=== PATIENT | male | born 1990 | race African-American/Black ===

== ENCOUNTER 2018-10-28 16:50 | Emergency (ER) | payer SELFPAY ==
[~2018-10-28] VITALS: Ht 160 cm; Wt 53.1 kg
[2018-10-28 16:56] VITALS: Ht 160 cm; Wt 53.1 kg
[2018-10-28 17:15] VITALS: BP 122/81
== END 2018-10-28 17:15 | disposition left against medical advice (07) ==
LOC: ED 16:50
DX: Z53.21 Procedure and treatment not carried out due to patient leaving prior to being seen by health care provider (principal)

== ENCOUNTER 2018-11-04 07:15 | Inpatient (IN) | payer OTHER ==
[~2018-11-04] VITALS: Ht 162.6 cm; Wt 50.0 kg
[2018-11-04 08:51] LABS: BASOPHIL % 0.2 % (0-2); PLATELET COUNT 377 x10^3mcL (130-400)
[2018-11-04 09:02] LABS: CALCIUM 9.6 mg/dL (8.5-10.1); CARBON DIOXIDE 10.1 mmol/L (21-32); CREATININE SERUM 1.5 mg/dL (0.7-1.3); POTASSIUM SERUM 4.8 mmol/L (3.5-5.1)
[2018-11-04 09:06] LABS: BILIRUBIN TOTAL 1.2 mg/dL (0.20-1.00)
[2018-11-04 09:10] LABS: TOTAL PROTEIN, SERUM 10.6 g/dL (6.4-8.2)
[2018-11-04 14:40] VITALS: BP 167/96
[2018-11-04 16:47] VITALS: BP 175/99
[2018-11-04 18:38] VITALS: BP 162/102
[2018-11-04 21:41] VITALS: BP 173/95
[2018-11-05 06:31] LABS: BASOPHIL % 0.1 % (0-2); PLATELET COUNT 266 x10^3mcL (130-400)
[2018-11-05 06:48] LABS: CALCIUM 8.2 mg/dL (8.5-10.1); CARBON DIOXIDE 16.9 mmol/L (21-32); CHLORIDE SERUM 100 mmol/L (98-107); CREATININE SERUM 1.1 mg/dL (0.7-1.3); GFR1 > 60 mL/min; GLUCOSE SERUM 179 mg/dL (74-106); PHOSPHOROUS 1.4 mg/dL (2.5-4.9); POTASSIUM SERUM 3.5 mmol/L (3.5-5.1); SODIUM SERUM 133 mmol/L (136-145)
[2018-11-05 06:50] VITALS: BP 169/108
[2018-11-05 06:54] LABS: RED CELL DISTRIBUTION WIDTH 17.5 % (11.5-14.5)
[2018-11-05 08:47] VITALS: BP 188/112
[2018-11-05 13:16] VITALS: BP 169/112
[2018-11-05 16:23] VITALS: BP 137/85
[2018-11-05 20:14] VITALS: BP 138/78
[2018-11-06 05:18] VITALS: BP 139/86
[2018-11-06 05:34] LABS: PLATELET COUNT 218 x10^3mcL (130-400)
[2018-11-06 05:35] LABS: BASOPHIL % 0 % (0-2); RED CELL DISTRIBUTION WIDTH 17.3 % (11.5-14.5)
[2018-11-06 06:15] LABS: CALCIUM 8.5 mg/dL (8.5-10.1); CARBON DIOXIDE 20.3 mmol/L (21-32); CHLORIDE SERUM 101 mmol/L (98-107); CREATININE SERUM 0.8 mg/dL (0.7-1.3); GFR1 > 60 mL/min; GLUCOSE SERUM 118 mg/dL (74-106); MAGNESIUM 1.8 mg/dL (1.8-2.4); SODIUM SERUM 132 mmol/L (136-145)
[2018-11-06 07:38] VITALS: BP 128/75
[2018-11-06 13:26] VITALS: BP 127/77
[2018-11-06 16:19] VITALS: BP 137/95
[2018-11-06 20:32] VITALS: BP 138/94
[2018-11-07] VITALS (7 sets, daily range): BP systolic 142–180; BP diastolic 86–120
[2018-11-07 06:14] LABS: BASOPHIL % 0.4 % (0-2); PLATELET COUNT 206 x10^3mcL (130-400)
[2018-11-07 06:47] LABS: CALCIUM 8.5 mg/dL (8.5-10.1); CARBON DIOXIDE 22.3 mmol/L (21-32); CHLORIDE SERUM 102 mmol/L (98-107); CREATININE SERUM 0.9 mg/dL (0.7-1.3); GFR1 > 60 mL/min; GLUCOSE SERUM 116 mg/dL (74-106); SODIUM SERUM 137 mmol/L (136-145)
[2018-11-07 06:49] LABS: RED CELL DISTRIBUTION WIDTH 17.5 % (11.5-14.5)
[2018-11-07 06:54] LABS: POTASSIUM SERUM 2.8 mmol/L (3.5-5.1)
[2018-11-07 07:38] LABS: LIPASE 2422 IU/L (73-393)
[2018-11-08] VITALS (7 sets, daily range): BP systolic 150–177; BP diastolic 98–121
[2018-11-08 09:14] LABS: CALCIUM 8.7 mg/dL (8.5-10.1); CHLORIDE SERUM 97 mmol/L (98-107); CREATININE SERUM 0.6 mg/dL (0.7-1.3); GFR1 > 60 mL/min; GLUCOSE SERUM 139 mg/dL (74-106); SODIUM SERUM 135 mmol/L (136-145)
[2018-11-08 09:42] LABS: POTASSIUM SERUM 2.6 mmol/L (3.5-5.1)
[2018-11-09 05:27] VITALS: BP 152/73
[2018-11-09 08:59] LABS: BASOPHIL % 0.6 % (0-2); PLATELET COUNT 339 x10^3mcL (130-400)
[2018-11-09 09:03] LABS: RED CELL DISTRIBUTION WIDTH 17.4 % (11.5-14.5)
[2018-11-09 09:47] LABS: CALCIUM 9.6 mg/dL (8.5-10.1); CARBON DIOXIDE 26.5 mmol/L (21-32); CHLORIDE SERUM 97 mmol/L (98-107); CREATININE SERUM 0.8 mg/dL (0.7-1.3); GFR1 > 60 mL/min; GLUCOSE SERUM 127 mg/dL (74-106); MAGNESIUM 1.6 mg/dL (1.8-2.4); POTASSIUM SERUM 3.2 mmol/L (3.5-5.1); SODIUM SERUM 136 mmol/L (136-145)
[2018-11-09 10:05] VITALS: BP 163/109
[2018-11-09 12:46] VITALS: BP 155/119
[2018-11-09 17:32] VITALS: BP 159/121
[2018-11-09 21:09] VITALS: BP 128/89
[2018-11-10 05:59] VITALS: BP 142/96; BP 152/108
[2018-11-10 06:04] LABS: BASOPHIL % 0.4 % (0-2)
[2018-11-10 06:22] LABS: CALCIUM 11.3 mg/dL (8.5-10.1); CARBON DIOXIDE 27.5 mmol/L (21-32); CHLORIDE SERUM 100 mmol/L (98-107); CREATININE SERUM 0.9 mg/dL (0.7-1.3); GFR1 > 60 mL/min; GLUCOSE SERUM 104 mg/dL (74-106); LIPASE 682 IU/L (73-393); POTASSIUM SERUM 4.7 mmol/L (3.5-5.1); SODIUM SERUM 137 mmol/L (136-145)
[2018-11-10 07:26] LABS: PLATELET COUNT 422 x10^3mcL (130-400); RED CELL DISTRIBUTION WIDTH 17.2 % (11.5-14.5)
[2018-11-10 10:01] VITALS: BP 129/89
[2018-11-10 12:00] VITALS: BP 129/89
== END 2018-11-10 12:40 | disposition home or self-care (01) | DRG 282 ==
LOC: ED 07:15 → DU 10:52 → MU 10:52 → DU 14:54
PROVIDERS: Emergency Medicine; Internal Medicine; ADMIT Internal Medicine
DX: K85.90 Acute pancreatitis without necrosis or infection, unspecified (principal); E87.2 Acidosis; F10.239 Alcohol dependence with withdrawal, unspecified; J45.909 Unspecified asthma, uncomplicated; Y90.9 Presence of alcohol in blood, level not specified; K92.2 Gastrointestinal hemorrhage, unspecified; Z88.0 Allergy status to penicillin; I10 Essential (primary) hypertension
CPT/HCPCS: 36600; C9113; G0378; J1170; J1885; J1940; J2060; J2270; J2405; J3480; J3490; J7030; J7042; J7120; Q0092; Q9967

== ENCOUNTER 2019-05-09 06:04 | Inpatient (IN) | payer OTHER ==
[~2019-05-09] VITALS: Ht 162.6 cm; Wt 49.0 kg
[2019-05-09 06:10] VITALS: Ht 162.6 cm; Wt 49.0 kg
[2019-05-09 07:06] LABS: BASOPHIL % 1.5 % (0-2); PLATELET COUNT 369 x10^3mcL (130-400)
[2019-05-09 07:13] LABS: CARBON DIOXIDE 22.4 mmol/L (21-32); CHLORIDE SERUM 96 mmol/L (98-107); CREATININE SERUM 0.9 mg/dL (0.7-1.3); GFR1 > 60 mL/min; GLUCOSE SERUM 121 mg/dL (74-106); POTASSIUM SERUM 3.1 mmol/L (3.5-5.1); SODIUM SERUM 135 mmol/L (136-145)
[2019-05-09 07:18] LABS: ALBUMIN 4.2 g/dL (3.4-5.0); ALKALINE PHOSPHATASE 141 U/L (46-116); ALT/SGPT 24 U/L (16-63); AST/SGOT 30 U/L (15-37); BILIRUBIN TOTAL 1.43 mg/dL (0.20-1.00)
[2019-05-09 07:19] LABS: CHOLESTEROL 201 mg/dL (<200); HDL CHOLESTEROL 121 mg/dL (40-60); LIPASE 1714 IU/L (73-393); TOTAL PROTEIN, SERUM 8.8 g/dL (6.4-8.2)
[2019-05-09 07:24] LABS: RED CELL DISTRIBUTION WIDTH 16.7 % (11.5-14.5)
[2019-05-09 07:57] LABS: UA SPECIFIC GRAVITY >=1.030 (1.005-1.035); microscopic required? YES; urine erythrocyte 1+ (NEGATIVE)
[2019-05-09 08:23] LABS: AMPHETAMINE QUAL UR NONE DETECTED (See below)
[2019-05-09 11:33] VITALS: BP 183/109
[2019-05-09 17:08] VITALS: BP 163/101
[2019-05-09 21:46] VITALS: BP 175/111
[2019-05-09 22:30] VITALS: BP 159/104
[2019-05-10] VITALS (7 sets, daily range): BP systolic 139–180; BP diastolic 62–117
[2019-05-10 06:29] LABS: CARBON DIOXIDE 21.8 mmol/L (21-32); CHLORIDE SERUM 100 mmol/L (98-107); CREATININE SERUM 0.8 mg/dL (0.7-1.3); GFR1 > 60 mL/min; GLUCOSE SERUM 138 mg/dL (74-106); POTASSIUM SERUM 3.2 mmol/L (3.5-5.1); SODIUM SERUM 135 mmol/L (136-145)
[2019-05-10 06:49] LABS: CALCIUM 8.8 mg/dL (8.5-10.1)
[2019-05-10 06:55] LABS: LIPASE 1831 IU/L (73-393)
[2019-05-10 07:50] LABS: BASOPHIL % 0.4 % (0-2); PLATELET COUNT 330 x10^3mcL (130-400)
[2019-05-10 07:51] LABS: RED CELL DISTRIBUTION WIDTH 17.2 % (11.5-14.5)
[2019-05-11 05:35] VITALS: BP 170/110
[2019-05-11 07:32] VITALS: BP 173/112
[2019-05-11 12:18] VITALS: BP 149/108
== END 2019-05-11 12:24 | disposition left against medical advice (07) | DRG 282 ==
LOC: ED 06:04 → DU 10:18 → MU 10:18 → DU 05-10 03:52 → MU 05-10 08:44
PROVIDERS: Emergency Medicine; ADMIT Family Medicine
DX: K85.90 Acute pancreatitis without necrosis or infection, unspecified (principal); F17.210 Nicotine dependence, cigarettes, uncomplicated; J45.909 Unspecified asthma, uncomplicated; Z53.29 Procedure and treatment not carried out because of patient's decision for other reasons; Z88.0 Allergy status to penicillin; Z82.49 Family history of ischemic heart disease and other diseases of the circulatory system
CPT/HCPCS: 83880; C9113; G0378; G0480; J1885; J2270; J3010; J7030; J7042; J7120